=== PATIENT | male | born 2000 | race Caucasian/White ===

== ENCOUNTER → 2023-01-12 | Outpatient (CLI) | payer OTHER ==
--- NOTE | 2023-01-12 08:09 | US ---
EXAMINATION TYPE: US liver DATE OF EXAM: 01/12/2023 COMPARISON: NONE CLINICAL INDICATION: Male, 22 years old with history of R74.01 ELEVATED LIVER ENZYMES; elevated labs, no symptoms TECHNIQUE: Multiple sonographic images of the right upper quadrant are obtained. FINDINGS: EXAM MEASUREMENTS: Liver Length: 17.4 cm Gallbladder Wall: 0.1 cm CBD: 0.6 cm Right Kidney: 10.6 x 4.9 x 4.7 cm JAVA TECH NOTES:bowel gas limits study Pancreas: appears wnl Liver: Increased echotexture without focal mass or dilated ducts. Gallbladder: wnl Evidence for sonographic Blanchard's sign: no CBD: wnl Right Kidney: wnl IMPRESSION: Hepatic steatosis without evidence for acute process.
== END | disposition home or self-care (01) ==
LOC: RADUSWWP 07:37
PROVIDERS: ATTEND Family Medicine
DX: K76.0 Fatty (change of) liver, not elsewhere classified (principal); R74.01 Elevation of levels of liver transaminase levels
CPT/HCPCS: 76705

== ENCOUNTER → 2023-12-25 | Outpatient (CLI) | payer OTHER ==
--- NOTE | 2024-01-18 06:02 | EM ---
EVENT MONITOR This is a _14__day__ event monitor. All available rhythm strips were reviewed. There was some artifact. There is evidence of sinus rhythm, sinus bradycardia, and sinus tachycardia. No evidence of any ventricular or supraventricular ectopy or of any significant bradycardia. The sinus bradycardia at 41 beats per minute was noted at probably 2 a.m. when the patient was presumably asleep. FINAL IMPRESSION: Predominant rhythm is sinus tachycardia and 1 episode of nighttime sinus bradycardia. No evidence of any atrial fibrillation, SVT, or VT. Unremarkable event monitor. MMODL / IJN: [id number] / [facility]ITALRayshawn
== END | disposition home or self-care (01) ==
LOC: RADECHMAIN 07:16
PROVIDERS: ATTEND Family Medicine
DX: R00.2 Palpitations (principal)
CPT/HCPCS: 93270

== ENCOUNTER → 2024-02-09 | Outpatient (CLI) | payer OTHER ==
--- NOTE | 2024-02-09 13:39 | CA ---
Transthoracic Echo Report Name: Humble Mora Age: 23 Gender: M : 2000 Exam Date: 02/09/2024 12:48 Exam Location: [facility] Ht (in): 72 Wt (lb): 250 Ordering Physician: Eric Fitzgerald MD Attending/Referring Phys: Jillian Leon [facility] Light Equipment Operator Sharee Ybarra RDCS Procedure CPT: Indications: R01.1 CARDIAC MURMUR, UNSPECIFIED Cardiac Hx: Technical Quality: Good Contrast 1: Total Dose (mL): Contrast 2: Total Dose (mL): MEASUREMENTS (Male / Female) Normal Values 2D ECHO LV Diastolic Diameter PLAX 4.6 cm 4.2 - 5.9 / 3.9 - 5.3 cm LV Systolic Diameter PLAX 3.4 cm IVS Diastolic Thickness 1.1 cm 0.6 - 1.0 / 0.6 - 0.9 cm LVPW Diastolic Thickness 1.1 cm 0.6 - 1.0 / 0.6 - 0.9 cm LV Relative Wall Thickness 0.5 RV Internal Dim ED PLAX 3.4 cm LA Systolic Diameter LX 3.4 cm 3.0 - 4.0 / 2.7 - 3.8 cm LV Diastolic Volume MOD 4C 162.5 cm??? LV Systolic Volume MOD 4C 82.1 cm??? LV Ejection Fraction MOD 4C 49.5 % LV Cardiac Index MOD 4C 2012.2 cm???/min???m??? LV Diastolic Length 4C 9.0 cm LV Systolic Length 4C 7.4 cm LV Diastolic Volume MOD 2C 124.6 cm??? LV Systolic Volume MOD 2C 48.0 cm??? LV Ejection Fraction MOD 2C 61.5 % LV Cardiac Index MOD 2C 1920.1 cm???/min???m??? LV Diastolic Length 2C 9.0 cm LV Systolic Length 2C 7.1 cm M-MODE RV Diastolic Diameter MM 2.7 cm Aortic Root Diameter MM 3.2 cm LA Systolic Diameter MM 2.4 cm LA Ao Ratio MM 0.8 DOPPLER AV Peak Velocity 130.1 cm/s AV Peak Gradient 6.8 mmHg Mitral E Point Velocity 84.3 cm/s Mitral A Point Velocity 68.1 cm/s Mitral E to A Ratio 1.2 MV Deceleration Time 192.9 ms MV E' Velocity 9.1 cm/s Mitral E to MV E' Ratio 9.3 FINDINGS Left Ventricle Left ventricular ejection fraction is estimated at 55-60 %. Left ventricular cavity size normal. Mildly increased septal wall thickness. Normal left ventricular wall motion. Right Ventricle Mild right ventricular dilatation. Unable to estimate the right ventricular systolic pressure. Right Atrium Normal right atrial size. No right atrial thrombus or mass seen. Left Atrium Normal left atrial size. No left atrial thrombus or mass present. Mitral Valve Structurally normal mitral valve. No mitral stenosis, regurgitation or prolapse. Aortic Valve Trileaflet aortic valve. No aortic valve stenosis or regurgitation. Tricuspid Valve Structurally normal tricuspid valve. No tricuspid stenosis, regurgitation or prolapse. Pulmonic Valve Structurally normal pulmonic valve. No pulmonic regurgitation. Pericardium No pericardial or pleural effusion. Aorta Aortic root and proximal ascending aorta not well visualized. CONCLUSIONS Technically difficult study for interpretation with poorly visualized endocardium Normal LV systolic function Mildly dilated RV. The pulmonary artery systolic pressure could not be calculated Overall no significant valvular abnormalities No pericardial effusion Poorly visualized aortic root and ascending aorta Previewed by: Dr. Zen Diggs MD (Electronically Signed) Final Date: 09 February 2024 13:38
== END | disposition home or self-care (01) ==
LOC: RADECHMAIN 12:36
PROVIDERS: ATTEND Family Medicine
DX: R01.1 Cardiac murmur, unspecified (principal)
CPT/HCPCS: 93306

== ENCOUNTER 2024-02-10 22:25 | Emergency (ER) | payer OTHER ==
[2024-02-10 22:46] VITALS: TEMP 97.9
--- NOTE | 2024-02-11 00:26 | ED ---
Head Injury HPI - General Chief complaint: Head Injury Stated complaint: hit head Time Seen by Provider: 02/10/24 23:51 Source: patient, RN notes reviewed, old records reviewed Mode of arrival: ambulatory Limitations: no limitations - History of Present Illness Initial comments: This is a 23-year-old male to ER for evaluation of significant headache and head injury posterior head injury with nausea and vomiting here in the ER, no neurological symptoms MD Complaint: head injury, head pain, fall -: hour(s) Mechanism of Injury: mechanical fall Previous Trauma to this Area: Yes Place: home Radiation: none Severity: moderate Severity scale (1-10): 4 Consistency: constant Provoking factors: none known Other Injuries: none - Related Data Allergies/Adverse reactions: Allergies Allergy/AdvReac Type Severity Reaction Status Date / Time No Known Allergies Allergy Verified 02/10/24 22:43 Review of Systems ROS Statement: Those systems with pertinent positive or pertinent negative responses have been documented in the HPI. ROS Other: All systems not noted in ROS Statement are negative. Past Medical History Past Medical History: No Reported History History of Any Multi-Drug Resistant Organisms: None Reported Past Surgical History: No Surgical Hx Reported Past Psychological History: No Psychological Hx Reported Smoking Status: Never smoker Past Alcohol Use History: Occasional Past Drug Use History: None Reported General Exam Limitations: no limitations General appearance: alert, in no apparent distress Head exam: Present: atraumatic, normocephalic, normal inspection Eye exam: Present: normal appearance, PERRL, EOMI. Absent: scleral icterus, conjunctival injection, periorbital swelling ENT exam: Present: normal exam, mucous membranes moist Neck exam: Present: normal inspection. Absent: tenderness, meningismus, lymphadenopathy Respiratory exam: Present: normal lung sounds bilaterally. Absent: respiratory distress, wheezes, rales, rhonchi, stridor Cardiovascular Exam: Present: regular rate, normal rhythm, normal heart sounds. Absent: systolic murmur, diastolic murmur, rubs, gallop, clicks GI/Abdominal exam: Present: soft, normal bowel sounds. Absent: distended, tenderness, guarding, rebound, rigid Extremities exam: Present: normal inspection, full ROM, normal capillary refill. Absent: tenderness, pedal edema, joint swelling, calf tenderness Back exam: Present: normal inspection Neurological exam: Present: alert, oriented X3, CN II-XII intact Psychiatric exam: Present: normal affect, normal mood Skin exam: Present: warm, dry, intact, normal color. Absent: rash Course Vital Signs 02/10/24 22:43 Temperature 97.9 F Pulse Rate 91 Respiratory 16 Rate Blood Pressure 139/85 O2 Sat by Pulse 98 Oximetry - Reevaluation(s) Reevaluation #1: 02/11/24 00:25 Medical records reviewed Reevaluation #2: 02/11/24 00:25 Patient symptoms unchanged Reevaluation #3: 02/11/24 00:25 Patient informed of results and questions answered Reevaluation #4: Was pt. sent in by a medical professional or institution (, PABLO, MANAGER [employer]ANGE, urgent care, hospital, or intermediate...) When possible be specific @ -no Did you speak to anyone other than the patient for history (EMS, parent, family, police, friend...)? What history was obtained from this source @ -no Did you review nursing and triage notes (agree or disagree)? Why? @ -agree Are old charts reviewed (outside hosp., previous admission, EMS record, old EKG, old radiological studies, urgent care reports/EKG's, intermediate records)? Report findings @ -yes Differential Diagnosis (chest pain, altered mental status, abdominal pain women, abdominal pain men, vaginal bleeding, weakness, fever, dyspnea, syncope, headache, dizziness, GI bleed, back pain, seizure, CVA, palpatations, mental health, musculoskeletal)? @ -prior EKG interpreted by me (3pts min.). @ -yes X-rays interpreted by me (1pt min.). @ -yes negative for acute disease CT interpreted by me (1pt min.). @ -no U/S interpreted by me (1pt. min.). @ -no What testing was considered but not performed or refused? (CT, X-rays, U/S, labs)? Why? @ -none What meds were considered but not given or refused? Why? @ -none Did you discuss the management of the patient with other professionals (professionals i.e. PABLO Lowery, MANAGER [employer], lab, RT, psych nurse, social science analyst, sanding machine tender automatic, teacher, credit administration officer, case management director)? Give summary @ -no Was smoking cessation discussed for >3mins.? @ -no Was critical care preformed (if so, how long)? @ -no Were there social determinants of health that impacted care today? How? (Homelessness, low income, unemployed, alcoholism, drug addiction, transportation, low edu. Level, literacy, decrease access to med. care, prison, rehab)? @ -none Was there de-escalation of care discussed even if they declined (Discuss DNR or withdrawal of care, Hospice)? DNR status @ -no What co-morbidities impacted this encounter? (DM, HTN, Smoking, COPD, CAD, Cancer, CVA, ARF, Chemo, Hep., AIDS, mental health diagnosis, sleep apnea, morbid obesity)? @ -none Was patient admitted / discharged? Hospital course, mention meds given and route, prescriptions, significant lab abnormalities, going to OR and other pertinent info. @ - Undiagnosed new problem with uncertain prognosis? @ -no Drug Therapy requiring intensive monitoring for toxicity (Heparin, Nitro, Insulin, Cardizem)? @ -no Were any procedures done? @ -no Diagnosis/symptom? @ - Acute, or Chronic, or Acute on Chronic? @ -Acute Uncomplicated (without systemic symptoms) or Complicated (systemic symptoms)? @ -Complicated Side effects of treatment? @ -no Exacerbation, Progression, or Severe Exacerbation? @ -exacerbation Poses a threat to life or bodily function? How? (Chest pain, [place], [place], pneumonia, PE, COPD, DKA, ARF, appy, cholecystitis, CVA, Diverticulitis, Homicidal, Suicidal, threat to staff... and all critical care pts) @ -yes Medical Decision Making - Medical Decision Making 23 male with minor head injury has now with negative CT imaging here in the ER and can be discharged home - Radiology Data Radiology results: report reviewed (CT brain C-spine negative for traumatic injury), image reviewed Disposition Clinical Impression: Closed head injury, Concussion without loss of consciousness Disposition: HOME SELF-CARE Condition: Good Instructions (If sedation given, give patient instructions): Concussion (ED) Is patient prescribed a controlled substance at d/c from ED?: No Referrals: Eric Fitzgerald MD [Primary Care Provider] - 1-2 days
--- NOTE | 2024-02-11 01:15 | CT ---
EXAM: CT Head Without Intravenous Contrast CLINICAL HISTORY: Head injury TECHNIQUE: Axial computed tomography images of the head/brain without intravenous contrast. CTDI is 49.1 mGy and DLP is 1110.4 mGy-cm. This CT exam was performed using one or more of the following dose reduction techniques: automated exposure control, adjustment of the mA and/or kV according to patient size, and/or use of iterative reconstruction technique. COMPARISON: No relevant prior studies available. FINDINGS: Brain: Ventricle and sulci normal in size and configuration for age. No acute stroke. No acute hemorrhage. No abnormal extra-axial fluid collection. Ventricles: No hydrocephalus. No midline shift. Bones/joints: Unremarkable. No acute fracture. Soft tissues: Unremarkable. Sinuses: Unremarkable as visualized. No acute sinusitis. IMPRESSION: No acute post-traumatic intracranial abnormality.
[2024-02-11 01:25] VITALS: BP 134/76; PULSE 84; RESP 18
== END 2024-02-11 01:41 | disposition home or self-care (01) ==
LOC: EC 22:25
DX: S06.0X9A Concussion with loss of consciousness of unspecified duration, initial encounter (principal); R40.2430 Glasgow coma scale score 3-8, unspecified time; W19.XXXA Unspecified fall, initial encounter; Y92.009 Unspecified place in unspecified non-institutional (private) residence as the place of occurrence of the external cause
CPT/HCPCS: 70450; 99283